=== PATIENT | female | born 1940 ===

== ENCOUNTER 2023-04-07 19:01 | Observation (INO) | payer MEDICARE | END 2023-04-08 16:51 | disposition home or self-care (01) | LOC: ER 19:01 → ERHOLD 19:02 → MEDS 04-08 14:31 | PROVIDERS: ADMIT Internal Medicine | DX: R07.9 Chest pain, unspecified (principal); J84.10 Pulmonary fibrosis, unspecified; I44.7 Left bundle-branch block, unspecified; E11.9 Type 2 diabetes mellitus without complications; D69.6 Thrombocytopenia, unspecified; E03.9 Hypothyroidism, unspecified; Z66 Do not resuscitate; R06.00 Dyspnea, unspecified ==

== ENCOUNTER 2023-06-01 19:29 | Emergency (ER) | payer MEDICARE ==
[~2023-06-01] VITALS: Ht 160 cm; Wt 81.7 kg
[~2023-06-01 19:29] MED LIST: GABA100 PO; GLIP2.5ER PO; HYCODAN 5 MG-1473 ML PO; LEVOTHYROXINE125 MC9 PO; METF500 PO; PANTOPRAZOLE SO40 M2 PO; PEPCID40 MG PO; Prednisone10 MG PO; SEMGLEE (Y100 UNIT/2 SC; Tessalon200 MG PO
[2023-06-01 19:47] LABS: BASOPHILS ABSOLUTE AUTO 0.07 K/mm3 (0.00-0.23); BASOPHILS PERCENT AUTO 1 % (0-2); EOSINOPHILS ABSOLUTE AUTO 0.32 K/mm3 (0.00-0.68); EOSINOPHILS PERCENT AUTO 3 % (0-6); Hematocrit 46.7 % (33.0-51.0); Hemoglobin 15.7 g/dL (11.5-16.0); IMMATURE GRAN ABSOLUTE AUTO 0.04 K/mm3 (0.00-0.10); IMMATURE GRAN PERCENT AUTO 0 % (0-1); LYMPHOCYTES ABSOLUTE AUTO 1.98 K/mm3 (0.84-5.20); LYMPHOCYTES PERCENT AUTO 19 % (21-46); MONOCYTES ABSOLUTE AUTO 1.03 K/mm3 (0.16-1.47); MONOCYTES PERCENT AUTO 10 % (4-13); Mean Corpuscular HGB 30.8 pg (26.0-34.0); Mean Corpuscular HGB Conc 33.6 g/dL (31.5-36.5); Mean Corpuscular Volume 92 fL (80-100); Mean Platelet Volume 11.1 fL (9.1-12.4); NEUTROPHILS ABSOLUTE AUTO 6.87 K/mm3 (1.96-9.15); NEUTROPHILS PERCENT AUTO 67 % (41-73); Platelet Count 128 K/mm3 (150-400); RDW Coefficient Variation 16.2 % (11.7-14.2); RDW Standard Deviation 54.3 fL (35.1-46.3); Red Blood Cell Count 5.09 M/mm3 (3.80-5.20); White Blood Cell Count 10.31 K/mm3 (4.00-11.30)
[2023-06-01 20:02] LABS: Albumin, Blood 3.2 g/dL (3.4-5.0); Albumin/Globulin Ratio 0.9 (0.8-1.8); Bilirubin, Total 0.9 mg/dL (0.1-1.0); Bun/Creatinine Ratio 12.5 (12.0-20.0); Calcium, Blood 8.7 mg/dL (8.5-10.1); Creatinine, Blood 0.88 mg/dL (0.40-1.00); Globulin, Blood 3.5 g/dL (2.2-4.0); Potassium, Blood 3.8 mmol/L (3.5-5.5); Total Protein, Blood 6.7 g/dL (6.4-8.2)
[2023-06-01 22:49] VITALS: BP 140/67
== END 2023-06-01 23:15 | disposition home or self-care (01) ==
LOC: ER 19:29
PROVIDERS: Emergency Medicine
DX: J84.10 Pulmonary fibrosis, unspecified (principal); R07.9 Chest pain, unspecified; E11.9 Type 2 diabetes mellitus without complications
CPT/HCPCS: 71046; 80053; 84484; 85025; 93005; 93010; 99285-25